=== PATIENT | male | born 1960 | race African-American/Black ===

== ENCOUNTER 2017-06-19 11:44 | Emergency (ER) | payer OTHER ==
[~2017-06-19] VITALS: Ht 172.7 cm; Wt 70.0 kg
[~2017-06-19 11:44] MED LIST: Z.0.NO CURRENT MEDS
[2017-06-19 11:46] VITALS: BP 130/80; PULSE 98; RESP 20; TEMP 98.9; O2SAT 99
--- NOTE | 2017-06-19 11:57 | PD ---
Physical Exam Time Seen by Provider: 11:56 Narrative 56yo M c/o LUQ abd pain since yesterday. +dry heaving. Denies fever, diarrhea. Denies ETOH. Patient seen in triage. VS reviewed. Awaiting be placement. Data Data Last Documented VS Vital Signs Date Time Temp Pulse Resp B/P (MAP) Pulse Ox O2 Delivery O2 Flow Rate FiO2 06/19/17 11:46 98.9 98 20 130/80 (97) 99 Room Air MDM Supervised Visit with MIRI: Isabella Leblanc Jun 19, 2017 11:57
[2017-06-19] MEDS ORDERED: SODIUM CHLORIDE 0.9% FLUSH 10 ML FLUSH IV FLUSH PRN (12:00)
[2017-06-19] MEDS ORDERED: SODIUM CHLOR 0.9% 1000 ML INJ 1,000 ML IV ONE ×2 (12:15→13:00)
[2017-06-19 12:24] VITALS: BP 153/93; PULSE 92; RESP 17; TEMP 98.2; O2SAT 100
[2017-06-19 12:29] LABS: AUTOMATED NEUTROPHIL # 7.4 TH/MM3 (1.8-7.7); BASOPHIL % 0.4 % (0.0-2.0); EOSINOPHIL % 0.2 % (0.0-4.0); HEMATOCRIT 38.8 % (39.0-51.0); HEMO FLAGS DIFF FINAL; LYMPH % 22.5 % (9.0-44.0); LYMPHOCYTE # 2.3 TH/MM3 (1.0-4.8); MEAN CELL VOLUME 95.3 FL (80.0-100.0); MEAN CORPUSCULAR HEMOGLOBIN 32.6 PG (27.0-34.0); MEAN CORPUSCULAR HGB CONC 34.2 % (32.0-36.0); MONO % 4.9 % (0.0-8.0); PLATELET COUNT 364 TH/MM3 (150-450); RED BLOOD COUNT 4.07 MIL/MM3 (4.50-5.90); RED CELL DISTRIBUTION WIDTH 15.3 % (11.6-17.2); WHITE BLOOD COUNT 10.3 TH/MM3 (4.0-11.0)
[2017-06-19] MEDS ORDERED: ONDANSETRON HCL 4 MG/2 ML VIAL IV PUSH ONE (12:30)
--- NOTE | 2017-06-19 12:35 | PD ---
HPI Chief Complaint: Abdominal Pain Time Seen by Provider: 12:18 Travel History International Travel<30 days: No Contact w/Intl Traveler<30days: No Traveled to known affect area: No History of Present Illness HPI 56 YO M presents to the ED for evaluation of 9/10 RUQ pain. Onset gradual overnight. Patient endorses accompanying dry heaving. He denies fevers, chills , chest pain, SOB, vomiting, diarrhea, constipation, hematochezia, melena, dysuria. He states that he drinks beer only occasionally. 20 PY smoking history. He's never had a pain like this before. He is followed by Dr. Palomino. He takes no daily medications. PFSH Past Medical History Medical History: Denies Significant Hx Diminished Hearing: No ?: Not Social History Alcohol Use: Yes (1 BEER DAILY/LAST INTAKE YESTERDAY) Tobacco Use: Yes (1/2 PPD/STARTED AGE 29) Substance Use: No Allergies-Medications (Allergen,Severity, Reaction): Coded Allergies: No Known Allergies (Verified , 12/19/15) Reported Meds & Prescriptions Reported Meds & Active Scripts Active Zofran Odt (Ondansetron Odt) 4 Mg Tab 4 Mg SL Q8HR PRN Percocet (Oxycodone-Acetaminophen) 5-325 mg Tab 1 Tab PO Q6H PRN Reported No Current Meds (Miscellaneous Medication) Misc Review of Systems Except as stated in HPI: all other systems reviewed are Neg Physical Exam Narrative GENERAL: Well-nourished, well-developed pleasant black male in no acute distress. SKIN: Focused skin assessment warm/dry. HEAD: Normocephalic. EYES: No scleral icterus. No injection or drainage. NECK: Supple, trachea midline. No JVD or lymphadenopathy. CARDIOVASCULAR: Regular rate and rhythm without murmurs, gallops, or rubs. RESPIRATORY: Breath sounds clear and equal bilaterally. No accessory muscle use. GASTROINTESTINAL: Abdomen soft, nondistended, active bowel sounds. Mild- moderate TTP in the LUQ. MUSCULOSKELETAL: No cyanosis, or edema. BACK: Nontender without obvious deformity. No CVA tenderness. Data Data Last Documented VS Vital Signs Date Time Temp Pulse Resp B/P (MAP) Pulse Ox O2 Delivery O2 Flow Rate FiO2 06/19/17 15:27 16 06/19/17 12:24 98.2 92 153/93 (113) 100 Room Air Orders Orders Complete Blood Count With Diff (06/19/17 11:57) Comprehensive Metabolic Panel (06/19/17 11:57) Lipase (06/19/17 11:57) Urinalysis - C+S If Indicated (06/19/17 11:57) Iv Access Insert/Monitor (06/19/17 11:57) Ecg Monitoring (06/19/17 11:57) Oximetry (06/19/17 11:57) Sodium Chloride 0.9% Flush (Ns Flush) (06/19/17 12:00) Sodium Chlor 0.9% 1000 Ml Inj (Ns 1000 M (06/19/17 12:15) Ondansetron Inj (Zofran Inj) (06/19/17 12:30) Morphine Inj (Morphine Inj) (06/19/17 13:00) Sodium Chlor 0.9% 1000 Ml Inj (Ns 1000 M (06/19/17 13:00) Ct Abd/Pel W Iv Contrast(Rout) (06/19/17 13:01) Iohexol 350 Inj (Omnipaque 350 Inj) (06/19/17 14:46) Morphine Inj (Morphine Inj) (06/19/17 15:00) Labs Laboratory Tests Test 06/19/17 12:06 06/19/17 12:07 Urine Color YELLOW Urine Turbidity CLEAR Urine pH 6.0 Urine Specific [place] 1.024 Urine Protein TRACE mg/dL Urine Glucose (UA) NEG mg/dL Urine Ketones 10 mg/dL Urine Occult Blood NEG Urine Nitrite NEG Urine Bilirubin NEG Urine Urobilinogen LESS THAN 2.0 MG/DL Urine Leukocyte Esterase NEG Urine RBC 3 /hpf Urine WBC 3 /hpf Urine Mucus FEW /lpf Microscopic Urinalysis Comment CULT NOT INDICATED White Blood Count 10.3 TH/MM3 Red Blood Count 4.07 MIL/MM3 Hemoglobin 13.3 GM/DL Hematocrit 38.8 % Mean Corpuscular Volume 95.3 FL Mean Corpuscular Hemoglobin 32.6 PG Mean Corpuscular Hemoglobin Concent 34.2 % Red Cell Distribution Width 15.3 % Platelet Count 364 TH/MM3 Mean Platelet Volume 7.6 FL Neutrophils (%) (Auto) 72.0 % Lymphocytes (%) (Auto) 22.5 % Monocytes (%) (Auto) 4.9 % Eosinophils (%) (Auto) 0.2 % Basophils (%) (Auto) 0.4 % Neutrophils # (Auto) 7.4 TH/MM3 Lymphocytes # (Auto) 2.3 TH/MM3 Monocytes # (Auto) 0.5 TH/MM3 Eosinophils # (Auto) 0.0 TH/MM3 Basophils # (Auto) 0.0 TH/MM3 CBC Comment DIFF FINAL Differential Comment Blood Urea Nitrogen 7 MG/DL Creatinine 0.80 MG/DL Random Glucose 109 MG/DL Total Protein 7.8 GM/DL Albumin 3.5 GM/DL Calcium Level 8.9 MG/DL Alkaline Phosphatase 80 U/L Aspartate Amino Transf (AST/SGOT) 23 U/L Alanine Aminotransferase (ALT/SGPT) 22 U/L Total Bilirubin 0.5 MG/DL Sodium Level 140 MEQ/L Potassium Level 3.9 MEQ/L Chloride Level 104 MEQ/L Carbon Dioxide Level 28.2 MEQ/L Anion Gap 8 MEQ/L Estimat Glomerular Filtration Rate 121 ML/MIN Lipase 563 U/L [facility] Medical Decision Making Medical Screen Exam Complete: Yes Emergency Medical Condition: Yes Differential Diagnosis pancreatitis versus cholecystitis versus biliary instruction versus diverticulitis versus other Narrative Course 56 YO M presents to the ED for evaluation of 9/10 RUQ pain. Onset gradual overnight. Patient endorses accompanying dry heaving. He denies fevers, chills , vomiting, diarrhea, constipation, hematochezia, melena, dysuria. He states that he drinks beer only occasionally, last drink last night. 20 PY smoking history. He's never had a pain like this before. He is followed by Dr. Palomino. Vitals reviewed. Physical exam reveals a nontoxic-appearing black male in no acute distress. There is mild to moderate tenderness to palpation in the left upper quadrant but the physical exam is otherwise unremarkable. IV was established. Patient was administered 1 L normal saline, 4 mg Zofran, 4 mg morphine IV. CBC: WBC 10.3. Hemoglobin 13.3. CMP: No abnormalities. Lipase: 563 UA: no culture indicated CT abdomen and pelvis: Mild prominence of the pancreatic head which is indiscreet with no focal mass. Pancreatic duct is mildly prominent. Likely pancreatitis. Follow-up and imaging recommended post treatment to exclude mass. Patient was administered a second liter of normal saline, additional 4 mg morphine IV. I discussed the results of the workup with the patient. I recommended clear liquid diet for the next few days, prescribed a short course of pain medications. Patient is instructed to abstain from alcohol, push fluids , eat bland foods, take medications as prescribed, avoid driving while taking medications, follow-up with Dr. Palomino. He was provided a copy of his CT results and a note to excuse him from work for the next 5 days. We discussed reasons to return to the ED. He indicated understanding of the instructions and is agreeable to the care plan. He is stable and discharged home. Diagnosis Primary Impression: Pancreatitis, alcoholic, acute Qualified Codes: K85.20 - Alcohol induced acute pancreatitis without necrosis or infection Referrals: Primary Care Physician Patient Instructions: Clear Liquid Diet (ED), General Instructions, Pancreatitis (ED) Departure Forms: Tests/Procedures, Work Release Enter return to work date: Jun 23, 2017 Additional Instructions: Rest, hydrate. Abstain from drinking. Liquid diet for the next few days as outlined in the discharge paperwork. Gradually reintroduce new foods after pain subsides. Take pain medication as prescribed, as needed. Do not drive while taking pain medication. Follow-up with your primary care provider this week. Return to the ED for any urgent or emergent medical condition. Med/Other Pt SpecificInfo: Prescription(s) given Scripts Ondansetron Odt (Zofran Odt) 4 Mg Tab 4 MG SL Q8HR Y for Nausea/Vomiting, #8 TAB 0 Refills Prov: Ruma Wilkins DO 06/19/17 Oxycodone-Acetaminophen (Percocet) 5-325 mg Tab 1 TAB PO Q6H Y for PAIN, #21 TAB 0 Refills Prov: Ruma Wilkins DO 06/19/17 Disposition: 01 DISCHARGE HOME Condition: Stable Marilyn Guerra Jun 19, 2017 12:35
[2017-06-19 12:43] LABS: BLOOD, URINE NEG (NEG); COMMENT (UR) CULT NOT INDICATED; CULTURE IF INDICATED CULT NOT INDICATED; GLUCOSE,URINE NEG (NEG); KETONE, URINE 10 mg/dL (NEG); MUCUS URINE FEW /lpf (OCC); NITRITE,URINE NEG (NEG); URINE COLOR YELLOW (YELLW/STRAW)
[2017-06-19 12:43] LABS: ALT (GPT) 22 U/L (12-78); ANION GAP 8 MEQ/L (5-15); AST (GOT) 23 U/L (15-37); BICARBONATE 28.2 MEQ/L (21.0-32.0); BLOOD UREA NITROGEN 7 MG/DL (7-18); CHLORIDE 104 MEQ/L (98-107); GLOMERULAR FILTRATION RATE 121 ML/MIN (>89); POTASSIUM 3.9 MEQ/L (3.5-5.1); SODIUM (NA) 140 MEQ/L (136-145)
[2017-06-19 12:45] LABS: ALKALINE PHOSPHATASE 80 U/L (45-117); TOTAL BILIRUBIN ADULT 0.5 MG/DL (0.2-1.0)
[2017-06-19] MEDS ORDERED: MORPHINE SULFATE 4 MG/ML INJ IV PUSH ONE ×2 (13:00→15:00)
[2017-06-19] MEDS ORDERED: IOHEXOL 350 MG/ML 10 ML VIAL (for RAD DIAG) IVCONTRAST ONE (14:46)
--- NOTE | 2017-06-19 14:58 | RADRPT ---
EXAM DATE/TIME: 06/19/2017 14:40 [facility] COMPARISON: No previous studies available for comparison. INDICATIONS : Left upper quadrant pain, nausea and vomiting. IV CONTRAST: 70 cc Omnipaque 350 (iohexol) IV ORAL CONTRAST: No oral contrast ingested. RADIATION DOSE: 9.22 CTDIvol (mGy) MEDICAL HISTORY : None SURGICAL HISTORY : None. ENCOUNTER: Initial ACUITY: 1 day PAIN SCALE: 9/10 LOCATION: Abdomen TECHNIQUE: Volumetric scanning of the abdomen and pelvis was performed. Using automated exposure control and ad justment of the mA and/or kV according to patient size, radiation dose was kept as low as reasonably achievable to obtain optimal diagnostic quality images. DICOM format image data is available electro nically for review and comparison. FINDINGS: LOWER LUNGS: Small low-attenuation lesion noted measuring approximately 5 mm. LIVER: Homogeneous density without lesion. There is no dilation of the biliary tree. No calcified gallston es. SPLEEN: Normal size without lesion. PANCREAS: The head pancreas appears inhomogeneous and mildly prominent heart there is no focal mass. The pancre atic duct is mildly prominent measuring 4-5 mm in size. There is no abnormal fluid collection. KIDNEYS: Normal in size and shape. There is no solid mass, stone or hydronephrosis. As a small cyst in the le ft kidney. ADRENAL GLANDS: Within normal limits. VASCULAR: There is no aortic aneurysm. BOWEL/MESENTERY: No oral contrast was given limiting the sensitivity. There is a normal appendix. The stomach, small b owel, and colon demonstrate no acute abnormality. There is no free intraperitoneal air or fluid. ABDOMINAL WALL: Within normal limits. RETROPERITONEUM: There is no lymphadenopathy. BLADDER: No wall thickening or mass. REPRODUCTIVE: Within normal limits. INGUINAL: There is no lymphadenopathy or hernia. MUSCULOSKELETAL: Within normal limits for patient age. CONCLUSION: 1. The head of the pancreas is mildly prominent and indistinct with no discrete focal mass. The pancr eatic duct is mildly prominent. The finding is nonspecific but could indicate acute pancreatitis. Fol lowup imaging is recommended to exclude possible mass after treatment. 2. Small low-attenuation lesion in the liver likely representing a small cyst. Vicente Martines MD on June 19, 2017 at 14:51 Board Certified Radiologist. This report was verified electronically.
[2017-06-19] MEDS ORDERED: ZOFR4TAB3 SL (15:08)
[2017-06-19] MEDS ORDERED: PERC5TAB12 PO (15:08)
[2017-06-19 15:27] VITALS: RESP 16
== END 2017-06-19 16:39 | disposition home or self-care (01) ==
LOC: NEPC 11:44
DX: K85.20 Alcohol induced acute pancreatitis without necrosis or infection (principal)
CPT/HCPCS: 74177; 80053; 81001; 83690; 85025; 96361; 96374; 96375; 96376; 99285; J2270; J2405; J7030; Q9967

== ENCOUNTER 2017-10-12 14:07 | Emergency (ER) | payer OTHER ==
[~2017-10-12] VITALS: Ht 172.7 cm; Wt 73.0 kg
[~2017-10-12 14:07] MED LIST changes: +PERC5TAB12 PO; +ZOFR4TAB3 SL
[2017-10-12 14:08] VITALS: BP 184/96; PULSE 98; RESP 12; TEMP 98.1; O2SAT 97
[2017-10-12] MEDS ORDERED: ONDANSETRON HCL 4 MG/2 ML VIAL IVP ONE (14:30)
[2017-10-12] MEDS ORDERED: MORPHINE SULFATE 2 MG/ML INJ IV PUSH ONE (14:30)
[2017-10-12] MEDS ORDERED: SODIUM CHLOR 0.9% 1000 ML INJ 1,000 ML IV ONE (14:30)
[2017-10-12] MEDS ORDERED: SODIUM CHLORIDE 0.9% FLUSH 10 ML FLUSH IV FLUSH PRN (14:30)
--- NOTE | 2017-10-12 14:30 | PD ---
HPI Chief Complaint: Abdominal Pain Time Seen by Provider: 14:23 Travel History International Travel<30 days: No Contact w/Intl Traveler<30days: No Traveled to known affect area: No History of Present Illness HPI 57-year-old man with history of pancreatitis in the past, presents to the ER today with 1 week history of upper abdominal pains which she currently rates it a 9 out of 10 with nausea and vomiting. He states it feels like his previous pancreatitis. He states that he had some alcohol last week. He denies any fevers, diarrhea, or any other symptoms. He has had noticed any alleviating or exacerbating factors. Modifying Factors: None Associated Signs & Symptoms: Upper abdominal pain with nausea and vomiting Risk Factors: History of pancreatitis, alcohol use PFSH Past Medical History Diminished Hearing: No Medical other: Yes (ETOH ABUSE ) Immunizations Current: No Pancreatitis: Yes Tetanus Vaccination: < 5 Years Influenza Vaccination: No ?: Not Social History Alcohol Use: Yes (1 BEER DAILY/LAST INTAKE YESTERDAY) Tobacco Use: Yes (1/2 PPD/STARTED AGE 29) Substance Use: No Allergies-Medications (Allergen,Severity, Reaction): Coded Allergies: No Known Allergies (Verified Adverse Reaction, Unknown, 10/12/17) Reported Meds & Prescriptions Reported Meds & Active Scripts Active Review of Systems Except as stated in HPI: all other systems reviewed are Neg Physical Exam Narrative GENERAL: Well-developed middle age after [place] male patient currently in moderate distress. Awake and oriented 3. SKIN: Focused skin assessment warm/dry. HEAD: Atraumatic. Normocephalic. EYES: Pupils equal and round. No scleral icterus. No injection or drainage. ENT: No nasal bleeding or discharge. Mucous membranes pink and moist. NECK: Trachea midline. No JVD. CARDIOVASCULAR: Regular rate and rhythm. No murmur appreciated. RESPIRATORY: No accessory muscle use. Clear to auscultation. Breath sounds equal bilaterally. GASTROINTESTINAL: Abdomen soft, upper abdominal tenderness without guarding or rebound, nondistended. Hepatic and splenic margins not palpable. MUSCULOSKELETAL: No obvious deformities. No clubbing. No cyanosis. No edema. NEUROLOGICAL: Awake and alert. No obvious cranial nerve deficits. Motor grossly within normal limits. Normal speech. PSYCHIATRIC: Appropriate mood and affect; insight and judgment normal. Data Data Last Documented VS Vital Signs Date Time Temp Pulse Resp B/P (MAP) Pulse Ox O2 Delivery O2 Flow Rate FiO2 10/12/17 14:08 98.1 98 12 184/96 (125) 97 Orders Orders Complete Blood Count With Diff (10/12/17 14:20) Comprehensive Metabolic Panel (10/12/17 14:20) Lipase (10/12/17 14:20) Iv Access Insert/Monitor (10/12/17 14:20) Ecg Monitoring (10/12/17 14:20) Oximetry (10/12/17 14:20) Ondansetron Inj (Zofran Inj) (10/12/17 14:30) Sodium Chloride 0.9% Flush (Ns Flush) (10/12/17 14:30) Electrocardiogram (10/12/17 14:20) Sodium Chlor 0.9% 1000 Ml Inj (Ns 1000 M (10/12/17 14:30) Morphine Inj (Morphine Inj) (10/12/17 14:30) Ct Abd/Pel W Iv Contrast(Rout) (10/12/17 15:17) Iohexol 350 Inj (Omnipaque 350 Inj) (10/12/17 15:50) Famotidine Inj (Pepcid Inj) (10/12/17 16:30) Ed Discharge Order (10/12/17 16:54) Labs Laboratory Tests Test 10/12/17 14:30 White Blood Count 8.3 TH/MM3 Red Blood Count 3.81 MIL/MM3 Hemoglobin 12.4 GM/DL Hematocrit 36.2 % Mean Corpuscular Volume 95.1 FL Mean Corpuscular Hemoglobin 32.5 PG Mean Corpuscular Hemoglobin Concent 34.1 % Red Cell Distribution Width 14.5 % Platelet Count 324 TH/MM3 Mean Platelet Volume 7.6 FL Neutrophils (%) (Auto) 63.3 % Lymphocytes (%) (Auto) 29.2 % Monocytes (%) (Auto) 6.0 % Eosinophils (%) (Auto) 1.2 % Basophils (%) (Auto) 0.3 % Neutrophils # (Auto) 5.2 TH/MM3 Lymphocytes # (Auto) 2.4 TH/MM3 Monocytes # (Auto) 0.5 TH/MM3 Eosinophils # (Auto) 0.1 TH/MM3 Basophils # (Auto) 0.0 TH/MM3 CBC Comment DIFF FINAL Differential Comment Blood Urea Nitrogen 4 MG/DL Creatinine 0.71 MG/DL Random Glucose 103 MG/DL Total Protein 7.1 GM/DL Albumin 3.3 GM/DL Calcium Level 8.6 MG/DL Alkaline Phosphatase 81 U/L Aspartate Amino Transf (AST/SGOT) 13 U/L Alanine Aminotransferase (ALT/SGPT) 19 U/L Total Bilirubin 0.5 MG/DL Sodium Level 139 MEQ/L Potassium Level 3.4 MEQ/L Chloride Level 104 MEQ/L Carbon Dioxide Level 29.9 MEQ/L Anion Gap 5 MEQ/L Estimat Glomerular Filtration Rate 138 ML/MIN Lipase 219 U/L [facility]DM Medical Decision Making Medical Screen Exam Complete: Yes Emergency Medical Condition: Yes Medical Record Reviewed: Yes Interpretation(s) Laboratory Tests Test 10/12/17 14:30 Red Blood Count 3.81 MIL/MM3 (4.50-5.90) Hemoglobin 12.4 GM/DL (13.0-17.0) Hematocrit 36.2 % (39.0-51.0) Blood Urea Nitrogen 4 MG/DL (7-18) Albumin 3.3 GM/DL (3.4-5.0) Aspartate Amino Transf (AST/SGOT) 13 U/L (15-37) Potassium Level 3.4 MEQ/L (3.5-5.1) Last 24 hours Impressions Abdomen/Pelvis CT 10/12/17 1517 Signed Impressions: Service Date/Time: Thursday, October 12, 2017 15:44 - CONCLUSION: Inflammatory changes/edema in the fat adjacent to the pancreatic head suggesting acute pancreatitis. Pancreatic head is mildly heterogeneous and unchanged from the prior study of 06/19/2017. Pancreatic duct is also mildly diffusely prominent, unchanged from prior study. Hugo Redmond MD Differential Diagnosis Abdominal pain with nausea and vomiting: Gastritis versus gastritis versus dehydration versus pancreatitis Narrative Course Lab work did not show any significant dehydration or lipase elevations. CAT scan however does show some signs of inflammation of the pancreatic head indicative of underlying pancreatitis. Patient has been following a clear liquid diet home and is staying fairly hydrated. Vital signs are stable in the ER. Patient was given IV fluids in the ER as well as pain medications. He did not have any vomiting episodes. At this point, my plan would be to release the patient were further symptomatic relief or pain and nausea and vomiting and have him follow-up as an outpatient. He should avoid further alcohol use. Return for worsening in symptoms as needed. The plan has discussed with the patient and he states understanding. Diagnosis Primary Impression: Pancreatitis Med/Other Pt SpecificInfo: Prescription(s) given Scripts Ondansetron Odt (Zofran Odt) 4 Mg Tab 4 MG SL Q6HR Y for Nausea/Vomiting, #7 TAB 0 Refills Prov: Ewa Lima MD 10/12/17 Oxycodone-Acetaminophen (Percocet) 5-325 mg Tab 1 TAB PO Q6H Y for PAIN, #15 TAB 0 Refills Prov: Ewa Lima MD 10/12/17 Disposition: 01 DISCHARGE HOME Condition: Stable Ewa Lima MD Oct 12, 2017 14:30
[2017-10-12 15:04] LABS: AUTOMATED NEUTROPHIL # 5.2 TH/MM3 (1.8-7.7); BASOPHIL % 0.3 % (0.0-2.0); EOSINOPHIL # 0.1 TH/MM3 (0-0.4); EOSINOPHIL % 1.2 % (0.0-4.0); HEMATOCRIT 36.2 % (39.0-51.0); HEMOGLOBIN 12.4 GM/DL (13.0-17.0); LYMPH % 29.2 % (9.0-44.0); LYMPHOCYTE # 2.4 TH/MM3 (1.0-4.8); MEAN CELL VOLUME 95.1 FL (80.0-100.0); MEAN CORPUSCULAR HEMOGLOBIN 32.5 PG (27.0-34.0); MEAN CORPUSCULAR HGB CONC 34.1 % (32.0-36.0); MEAN PLATELET VOLUME 7.6 FL (7.0-11.0); MONOCYTE # 0.5 TH/MM3 (0-0.9); NEUT % 63.3 % (16.0-70.0); PLATELET COUNT 324 TH/MM3 (150-450); RED BLOOD COUNT 3.81 MIL/MM3 (4.50-5.90); RED CELL DISTRIBUTION WIDTH 14.5 % (11.6-17.2); WHITE BLOOD COUNT 8.3 TH/MM3 (4.0-11.0)
[2017-10-12 15:15] LABS: ALBUMIN 3.3 GM/DL (3.4-5.0); ALT (GPT) 19 U/L (12-78); AST (GOT) 13 U/L (15-37); BICARBONATE 29.9 MEQ/L (21.0-32.0); BLOOD UREA NITROGEN 4 MG/DL (7-18); CALCIUM 8.6 MG/DL (8.5-10.1); CHLORIDE 104 MEQ/L (98-107); CREATININE 0.71 MG/DL (0.60-1.30); GLOMERULAR FILTRATION RATE 138 ML/MIN (>89); GLUCOSE,RANDOM 103 MG/DL (74-106); LIPASE 219 U/L (73-393); SODIUM (NA) 139 MEQ/L (136-145)
[2017-10-12 15:16] LABS: ALKALINE PHOSPHATASE 81 U/L (45-117); TOTAL BILIRUBIN ADULT 0.5 MG/DL (0.2-1.0); TOTAL PROTEIN 7.1 GM/DL (6.4-8.2)
[2017-10-12] MEDS ORDERED: IOHEXOL 350 MG/ML 10 ML VIAL (for RAD DIAG) IVCONTRAST ONE (15:50)
--- NOTE | 2017-10-12 15:55 | EKG ---
Date Performed: 10/12/2017 Time Performed: 14:29:50 PTAGE: 57 years EKG: Sinus rhythm NORMAL ECG NO PREVIOUS TRACING DOCTOR: Parvez Bueno Interpretating Date/Time 10/12/2017 15:54:43
[2017-10-12] MEDS ORDERED: FAMOTIDINE 20 MG/2 ML VIAL IV PUSH ONE (16:30)
--- NOTE | 2017-10-12 16:46 | RADRPT ---
EXAM DATE/TIME: 10/12/2017 15:44 [facility] COMPARISON: CT ABDOMEN & PELVIS W CONTRAST, June 19, 2017, 14:40. INDICATIONS : Abdominal pain. IV CONTRAST: 96 cc Omnipaque 350 (iohexol) IV ORAL CONTRAST: No oral contrast ingested. RADIATION DOSE: 5.41 CTDIvol (mGy) MEDICAL HISTORY : Pancreatitis. SURGICAL HISTORY : None. ENCOUNTER: Initial ACUITY: 2 days PAIN SCALE: 8/10 LOCATION: abdomen TECHNIQUE: Volumetric scanning of the abdomen and pelvis was performed. Using automated exposure control and ad justment of the mA and/or kV according to patient size, radiation dose was kept as low as reasonably achievable to obtain optimal diagnostic quality images. DICOM format image data is available electro nically for review and comparison. FINDINGS: LOWER LUNGS: The visualized lower lungs are clear. LIVER: Homogeneous density without lesion. There is no dilation of the biliary tree. No calcified gallston es. SPLEEN: Normal size without lesion. PANCREAS: Stranding slight hazy opacity in the fat adjacent to the pancreatic head consistent with the history of acute pancreatitis. No nonenhancing pancreatic tissue identified. No peripherally enhancing fluid collections. Pancreatic duct is mildly prominent diffusely. Pancreatic head is again mildly heterogen eous and unchanged from prior study. KIDNEYS: Normal in size and shape. There is no mass, stone or hydronephrosis. ADRENAL GLANDS: Within normal limits. VASCULAR: Diffuse arterial calcification. Aortic diameter are within normal limits. BOWEL/MESENTERY: No evidence of bowel dilatation. No free air or free fluid. Appendix within normal limits. ABDOMINAL WALL: Within normal limits. RETROPERITONEUM: There is no lymphadenopathy. BLADDER: No wall thickening or mass. REPRODUCTIVE: Within normal limits. INGUINAL: There is no lymphadenopathy or hernia. MUSCULOSKELETAL: Nonspecific arthritic findings of the hips bilaterally unchanged. CONCLUSION: Inflammatory changes/edema in the fat adjacent to the pancreatic head suggesting acute pancreatitis. Pancreatic head is mildly heterogeneous and unchanged from the prior study of 06/19/2017. Pancreatic d uct is also mildly diffusely prominent, unchanged from prior study. Hugo Redmond MD on October 12, 2017 at 16:37 Board Certified Radiologist. This report was verified electronically.
[2017-10-12] MEDS ORDERED: PERC5TAB12 PO (16:58)
[2017-10-12] MEDS ORDERED: ZOFR4TAB3 SL (16:58)
== END 2017-10-12 17:23 | disposition home or self-care (01) ==
LOC: NEPC 14:07
DX: K85.90 Acute pancreatitis without necrosis or infection, unspecified (principal); R11.2 Nausea with vomiting, unspecified; Z72.0 Tobacco use; F10.10 Alcohol abuse, uncomplicated
CPT/HCPCS: 74177; 80053; 83690; 85025; 93005; 96361; 96374; 96375; 99285; J2270; J2405; J7030; Q9967